=== PATIENT | female | born 1975 | race Two or more races ===

== ENCOUNTER 2024-06-19 13:35 | Outpatient (REF) | payer OTHER, SELFPAY ==
--- NOTE | ~2024-06-19 | XR_ITS ---
EXAMINATION: XR KNEE, RIGHT CLINICAL INFORMATION: M25.569 - Pain in unspecified knee COMPARISON: None available. TECHNIQUE: Two views of the right knee. FINDINGS: No fracture or joint effusion. Alignment is anatomic. Joint spaces are maintained. No abnormal soft tissue calcification. XR/XR knee RT 2V IMPRESSION: Normal right knee. Electronically signed by: Angela Conklin MD 07/28/2024 05:[address] [facility]
--- NOTE | ~2024-06-19 | XR_ITS ---
EXAMINATION: XR KNEE, LEFT CLINICAL INFORMATION: M25.569 - Pain in unspecified knee COMPARISON: None available. TECHNIQUE: Two views of the left knee. FINDINGS: No fracture or joint effusion. Alignment is anatomic. Joint spaces are maintained. No abnormal soft tissue calcification. XR/XR knee LT 2V IMPRESSION: Normal left knee. Electronically signed by: Angela Conklin MD 07/28/2024 05:13 PM EST
== END 2024-06-19 13:36 | disposition home or self-care (01) ==
LOC: HO.HMGCX 13:35
PROVIDERS: Visit Provider Registered Nurse
DX: M54.50 Low back pain, unspecified (principal); H92.03 Otalgia, bilateral; M79.672 Pain in left foot; M79.671 Pain in right foot; M25.562 Pain in left knee; M25.561 Pain in right knee; G89.29 Other chronic pain; S46.819A Strain of other muscles, fascia and tendons at shoulder and upper arm level, unspecified arm, initial encounter; X58.XXXA Exposure to other specified factors, initial encounter; Y93.9 Activity, unspecified; Y92.9 Unspecified place or not applicable; Y99.9 Unspecified external cause status
CPT/HCPCS: 73560; 99202

== ENCOUNTER 2024-06-19 13:35 | Outpatient (AMB) | payer OTHER, SELFPAY ==
--- NOTE | 2024-06-19 13:38 | AM.OFFWIN_ITS ---
Intake Vital Signs 06/19/24 13:42 Height 5 ft 2 in Weight 275 lb BMI 50.3 BP 120/76 Blood Pressure Location Rt brachial Position Sitting Pulse 80 Pulse Source Pulse Oximeter Pulse Oximetry (%) 98 Oxygen Delivery Method Room Air Intake Visit Reasons: low back pain, ears and feet also Intake Note: pt is here for low back pain, ear and feet pain, patient does not have a pcp and was advised to come here Patient Tobacco Use Status: Never used Tobacco Allergies No Known Allergies Allergy (Verified 06/19/24 13:38) Do you need a note to return to daycare/school/sports/work: No HPI low back pain, ears and feet also HPI Details This note is constructed using voice recognition software. While every effort has been made to ensure accuracy, message broker developer errors may have been included. The patient is a 49 year old female who presents to the clinic today with bilateral knee pain, bilateral shoulder pain, with radiation up towards the ears. Patient reports that she moved from [place] approximately 3 weeks ago due to inability to obtain health insurance. She notes that she had a surgery in her upper back in the cervical region, about 5 or 6 years ago, she has not been treating her pain since then other than the occasional Advil. She reports that she has obtained an appointment with a new primary care provider, however she was provided an appointment for June of 2025, and given that the pain has been more constant, she does not feel waiting an entire year to be evaluated as a good idea. She reports that she has chronic knee pain and has been told that she needed knee replacement bilaterally. She reports that this has been several years that she has been followed for that, and she has even had MRI in the past for it, however but given that she has moved up from [place], she would need to establish with a new orthopedist. She denies any new injury to the area, and that the pain is primarily with ambulation. It is the knee pain that primarily led her to stop working, which led us of insurance. She reports chronic low back pain, primarily left more than right, and denies numbness and tingling in the extremities. She also reports bilateral upper back pain, in the trapezius region when she points to it. She reports that the pain in the neck gets sharp in nature, and seems to radiate up towards her ears. She denies loss of control of bowel or bladder, new trauma, any surgeries other than what was listed above. [facility]LY [facility] Social History Patient Tobacco Use Status: Never used Tobacco Review of Systems Const All systems reviewed & are unremarkable except as noted in HPI and below Physical Exam Vital Signs: Last Vital Signs Pulse 80 06/19/24 13:42 BP 120/76 06/19/24 13:42 Pulse Ox 98 06/19/24 13:42 Oxygen Delivery Method Room Air 06/19/24 13:42 BMI result Body Mass Index 50.3 Const General: cooperative, healthy appearing, comfortable, no acute distress and well developed Orientation/consciousness: patient oriented x3 Limitations: no limitations HEENT Head: Yes normal to inspection Ears: hearing grossly normal bilaterally Eyes General: appearance normal, both eyes and all related structures Neck Neck: Yes normal visual inspection and Yes full ROM Resp Effort & Inspection: normal respiratory effort and able to speak in complete sentences Auscultation: clear to auscultation bilaterally Cardio Rate: regular rate Rhythm: regular rhythm Heart sounds: normal S1 and S2 Skin General skin exam: no rashes or lesions noted Neuro General: patient oriented x3 Extrem Other: Full range of motion, positive crack but as bilateral knees, no edema, erythema, warmth. Full range of motion cervical region, with normal lateral rotation. Increased muscle bulging and tender to palpation bilateral trapezius. Shoulders full range of motion. Bilateral lumbar tenderness to palpation with increased muscle bulging. Negative SLR, negative well SLR. Distal neurovascular exam intact. General: Yes normal to inspection Assessment & Plan Assessment & Plan (1) Chronic knee pain: Code(s): M25.569 - Pain in unspecified knee; G89.29 - Other chronic pain Qualifiers: Laterality: bilateral Qualified Code(s): M25.561 - Pain in right knee; M25.562 - Pain in left knee; G89.29 - Other chronic pain Plan: Patient previously with workup to work towards surgical replacement, however has moved out of state to [place]. She reports that she has not had any imaging in several years, and would be interested in receiving imaging and referral to ortho if appropriate. X-ray ordered of each knee to facilitate future referral if appropriate. (2) Trapezius strain: Code(s): S46.819A - Strain of other muscles, fascia and tendons at shoulder and upper arm level, unspecified arm, initial encounter Qualifiers: Encounter type: initial encounter Laterality: unspecified laterality Qualified Code(s): S46.819A - Strain of other muscles, fascia and tendons at shoulder and upper arm level, unspecified arm, initial encounter Plan: Advised NSAIDs, muscle relaxers for symptomatic management in addition to heat/ice. Consider physical therapy referral if appropriate, advised follow up as needed with worsening or failure to resolve. (3) Lumbar pain: Code(s): M54.50 - Low back pain, unspecified Plan: No red flag symptoms warranting imaging at this time. Advised NSAIDs, muscle relaxers for symptomatic management in addition to heat/ice. Consider physical therapy referral if appropriate, advised follow up as needed with worsening or failure to resolve. Plan See above for full details and plan. Orders: Orders XR knee LT 2V Today G89.29 - Other chronic pain, M25.569 - Pain in unspecified knee XR knee RT 2V Today G89.29 - Other chronic pain, M25.569 - Pain in unspecified knee Medications: New cyclobenzaprine 5 mg PO Q8H PRN 10 tabs 0RF Muscle Spasm ibuprofen 600 mg PO Q8H PRN 20 tabs 0RF pain Coding Level of Care Code New Pt Level 4 (07010) Diagnoses Chronic pain of both knees M25.561; M25.562; G89.29 Laterality: bilateral Strain of trapezius muscle, unspecified laterality, initial encounter S46.819A Encounter type: initial encounter Laterality: unspecified laterality Lumbar pain M54.50
[2024-06-19 13:42] VITALS: BP 120/76; PULSE 80; O2SAT 98; BMI 50.3
== END 2024-06-19 14:38 | disposition home or self-care (01) ==
PROVIDERS: Visit Provider Registered Nurse
DX: M25.561 Pain in right knee (principal); M25.562 Pain in left knee; G89.29 Other chronic pain; S46.819A Strain of other muscles, fascia and tendons at shoulder and upper arm level, unspecified arm, initial encounter; M54.50 Low back pain, unspecified

== ENCOUNTER 2024-08-18 11:52 | Emergency (ER) | payer OTHER, SELFPAY ==
[2024-08-18 12:04] VITALS: BP 151/78; PULSE 101; RESP 20; TEMP 36; O2SAT 97; BMI 52.9
--- NOTE | 2024-08-18 12:05 | ED.GENADULT ---
HPI - General Adult General Chief complaint: Abdominal Pain Stated complaint: Low abd pain Time Seen by Provider: 08/18/24 21:19 Source: patient Mode of arrival: ambulatory Limitations: no limitations History of Present Illness ED Provider: Dr. Sola Ram HPI narrative: Patient comes to the emergency room complaining of 2-3 days of diarrhea and suprapubic pain. Patient complaining of mild discomfort with urination and mild bilateral back pain. Patient denies nausea vomiting or diarrhea, denies any fever or chills. Patient states that she did not take any medication prior to arrival. Patient states that she has chronic bilateral back pain and has had surgery for it. However, she states that she has a different kind of discomfort in her back. Related Data Previous Rx's ?Medication ?Instructions ?Recorded cyclobenzaprine 5 mg tablet 5 mg PO Q8H PRN Muscle Spasm #10 06/19/24 tabs ibuprofen 600 mg tablet 600 mg PO Q8H PRN pain #20 tabs 06/19/24 levofloxacin 500 mg tablet 500 mg PO DAILY #9 tabs 08/18/24 loperamide 2 mg tablet 2 mg PO Q4H PRN loose stool #10 08/18/24 tabs Allergies Allergy/AdvReac Type Severity Reaction Status Date / Time morphine [MORPHINE] AdvReac Severe DIZZINESS Verified 08/18/24 12:08 EVEN WHEN ADMIN OVER SEVERAL MINUTES Review of Systems Review of Systems: Constitutional : No Weight loss, No Fever, No Chills, No Night Sweats, No Fatigue, No Malaise ENT/Mouth : No Hearing loss, No Ear Pain, No Nasal Congestion, No Sinus Pain, No Hoarseness, No sore throat, No Rhinorrhea, No Swallowing Difficulty Eyes: No Eye Pain, No Swelling, No Redness, No Foreign Body, No Discharge, No Vision Changes Cardiovascular : No Chest Pain, No SOB, No Dyspnea on Exertion, No Orthopnea, No Edema, No Palpitations Respiratory : No Cough, No Sputum, No Wheezing, No Smoke Exposure, No Dyspnea Gastrointestinal : No Nausea, No Vomiting, No Diarrhea, No Constipation, No abdominal Pain, No Hematochezia, No Melena Genitourinary : Complaining of mild Dysuria, No Urinary Frequency, No Hematuria, No Urinary Incontinence, No Urgency, complaining of mild bilateral Flank Pain, No Urinary Flow Changes, No Hesitancy Musculoskeletal : No joint pain, No Myalgias, No Joint Swelling Skin : No Skin Lesions, No rash Neuro : No Weakness, No Numbness, No Paresthesias, No Loss of Consciousness, No Dizziness, No Headache Psych : No Anxiety/Panic, No Depression, No SI/HI/AH/VH, No Social Issues, Heme/Lymph: No Bruising, No Bleeding,No Lymphadenopathy Endocrine : No Polyuria, No Polydipsia, No Temperature Intolerance [facility] Social History Social History (System 06/19/24 @ 15:10 by Bianca Martell) Patient Tobacco Use Status: Never used Tobacco Advance Directives: No Advance Directives Information Provided: No Do you have a plan to hurt others: No Plan Physical Exam ED Vital Signs: Vital Signs - 24 hr 08/18/24 12:04 08/18/24 20:32 Temperature 96.8 F 98.1 F Pulse Rate 101 H 73 Respiratory Rate 20 16 Blood Pressure 151/78 H 132/68 Pulse Oximetry 97 97 Oxygen Delivery Method Room Air Room Air BMI result Body Mass Index 52.9 Const Other: Appearance: Alert. Oriented X3. No acute distress. Well-appearing Eyes: Pupils equal, round and reactive to light. ENT: Pharynx normal. Neck: Normal inspection. Neck supple. No lymph nodes noted. No crepitus CVS: Normal heart rate and rhythm. Pulses normal. Normal S1 and S2 Respiratory: No respiratory distress. Breath sounds normal. No Wheezing. No rales Abdomen: Soft , discomfort to palpation in the suprapubic area, no significant CVA tenderness Skin: Skin warm and dry. Normal skin color. Normal skin turgor. Extremities: No lower extremity edema. No Lacerations. No Rash Neuro: Oriented X 3. No motor deficit. No sensory deficit. Moving all extremities. No slurred speech. CN 2 through 12 grossly intact Psych: calm, cooperative, normal affect Course Course Course Narrative: This is a rapid medical exam performed by Yoly Galloway NP: Additional HPI, ROS, PE not included below will be deferred to primary provider. Patient is a 49-year-old female presenting with complaint of lower abdominal pain since yesterday, diarrhea with any PO intake. Denies recent abx use. Plan: labs, viral serology Medical Decision Making Medical Decision Making MDM Narrative: My interpretation of labs: No significant abnormality in patient's hematology and chemistry. UTI positive. Serology negative for influenza and COVID. I discussed with the patient that the source her suprapubic discomfort is likely a urinary tract infection. Given that the patient is stating that she has acute on chronic back pain/flank pain, we will treat as pyelonephritis. Patient is not septic. No episodes of hypotension, no fever chills, no tachycardic. Patient was given the 1st dose of levofloxacin in the emergency room. For diarrhea, it may be a viral syndrome, patient was giving loperamide p.o.. In the emergency room, patient has not had any episodes of diarrhea. Differential Diagnosis Differential Diagnoses: The differential diagnosis associated with the presentation includes (As above) Lab Data MDM Lab Attestation statement: I reviewed the patient's lab results. 08/18/24 14:19 08/18/24 14:19 Labs: Lab Results 08/18/24 08/18/24 Range/Units 14:18 14:19 WBC 10.9 H (4.8-10.8) X10*3/uL RBC 4.44 (4.20-5.50) X10*6/uL Hgb 12.9 (12.0-16.0) g/dl Hct 39.5 (37.0-47.0) % MCV 89.0 (80.0-98.0) fL MCH 29.1 (27.0-33.0) pg MCHC 32.7 (31.0-35.0) g/dl RDW 12.6 (11.0-16.0) % Plt Count 304 (160-400) X10*3/uL MPV 9.4 (9.4-12.3) fL Immature Gran % (Auto) 0.5 H (0.0-0.4) % Neut % (Auto) 62.4 (45-73) % Lymph % (Auto) 30.0 (20-40) % [place] % (Auto) 5.3 (2-11) % Eos % (Auto) 1.3 (0-4) % Baso % (Auto) 0.5 (0-2) % Lymph # (Auto) 3.3 (1.2-4.9) X10*3/uL [place] # (Auto) 0.6 (0.1-1.2) X10*3/uL Eos # (Auto) 0.1 (0.0-0.4) X10*3/uL Baso # (Auto) 0.1 (0.0-0.2) X10*3/uL Abs Immat Gran (auto) 0.05 H (0.00-0.03) X10*3/uL Absolute Neuts (auto) 6.8 (2.0-8.3) x10*3/uL Absolute Nucleated RBC 0.000 (0.0-0.012) X10*3/uL Nucleated RBC % (auto) 0.0 (0.0-0.2) /100WBC Sodium 138 (135-145) mmol/L Potassium 4.3 (3.3-5.1) mmol/L Chloride 106 (96-108) mmol/L Carbon Dioxide 27 (22-29) mmol/L Anion Gap 9 L (12-20) BUN 13 (9-16) mg/dL Creatinine 0.75 (0.5-1.4) mg/dL Estim Creat Clear Calc 118.2 Estimated GFR > 60 Random Glucose 101 (60-115) mg/dL Calcium 9.4 (8.4-10.2) mg/dL Magnesium 2.1 (1.6-2.6) mg/dL Total Bilirubin 0.3 (0.0-1.0) mg/dL AST 21 (5-31) U/L ALT 21 (0-31) U/L Alkaline Phosphatase 72 (39-117) U/L Total Protein 7.7 (6.5-8.0) g/dL Albumin 3.9 (3.5-5.0) g/dL Urine Color Dark Yellow Urine Appearance Clear Urine pH 5.5 (5.0-9.0) Ur Specific [place] 1.020 (1.005-1.025) Urine Protein Negative (Neg-Trace) mg/dL Urine Glucose (UA) Negative (Negative) mg/dL Urine Ketones Negative (Negative) mg/dL Urine Blood Trace H (Negative) Urine Nitrite Positive H (Negative) Ur Leukocyte Esterase Negative (Negative) Urine RBC 0-2 (0-2) /HPF Urine WBC 0-5 (0-5) /HPF Ur Squamous Epith Cells 3-5 (0-2) /HPF Urine Bacteria None Seen (None Seen) Hyaline Casts 0-2 (0-2) /LPF Granular Casts Present Influenza Type A (PCR) NEGATIVE (Negative) Influenza Type B (PCR) NEGATIVE (Negative) RSV RNA Qual (PCR) NEGATIVE (Negative) SARS-CoV-2 RNA (RT-PCR) NEGATIVE (Negative) Discharge Plan Discharge Clinical Impression: Pyelonephritis, Diarrhea Patient Disposition: Home, Self-Care Instructions: Kidney Infection (ED), Acute Diarrhea (ED) Additional Instructions: Please follow-up with your primary care physician tomorrow. If you have any worsening or new symptoms, please return to the emergency room or call 911 Prescriptions: New levofloxacin 500 mg tablet 500 mg PO DAILY Qty: 9 0RF loperamide 2 mg tablet 2 mg PO Q4H PRN (Reason: loose stool) Qty: 10 0RF Rx Instructions: administer after each loose stool until symptoms controlled; do not exceed 8 mg per 24 hrs No Action cyclobenzaprine 5 mg tablet 5 mg PO Q8H PRN (Reason: Muscle Spasm) Qty: 10 0RF ibuprofen 600 mg tablet 600 mg PO Q8H PRN (Reason: pain) Qty: 20 0RF Print Language: [place]
[2024-08-18 14:27] LABS: Basophils Absolute Auto 0.1 X10*3/uL (0.0-0.2); Basophils Percent Auto 0.5 % (0-2); Eosinophils Absolute Auto 0.1 X10*3/uL (0.0-0.4); Eosinophils Percent Auto 1.3 % (0-4); Hematocrit 39.5 % (37.0-47.0); Hemoglobin 12.9 g/dl (12.0-16.0); Imm Gran Abs Auto 0.05 X10*3/uL (0.00-0.03); Imm Gran Pct Auto 0.5 % (0.0-0.4); Lymphocytes Absolute Auto 3.3 X10*3/uL (1.2-4.9); MANUAL DIFF FLAG NO; Mean Corpuscular HGB Conc 32.7 g/dl (31.0-35.0); Mean Corpuscular Hemoglobin 29.1 pg (27.0-33.0); Mean Platelet Volume 9.4 fL (9.4-12.3); Monocytes Absolute Auto 0.6 X10*3/uL (0.1-1.2); Monocytes Percent Auto 5.3 % (2-11); Neutrophils Absolute Auto 6.8 x10*3/uL (2.0-8.3); Neutrophils Percent Auto 62.4 % (45-73); Platelet Count 304 X10*3/uL (160-400); Red Blood Count 4.44 X10*6/uL (4.20-5.50); Red Cell Distribution Width 12.6 % (11.0-16.0); White Blood Count 10.9 X10*3/uL (4.8-10.8)
[2024-08-18 14:31] LABS: Appearance Urine Clear; Color Urine Dark Yellow; Glucose Urine UA Negative (Negative); Leukocyte Esterase Urine Negative (Negative); Nitrite Urine Positive (Negative); PH 5.5 (5.0-9.0); UMIC TRIGGER UACC YES; Urine Blood Trace (Negative); Urine Ketones Negative (Negative); Urine Protein Negative (Neg-Trace)
[2024-08-18 14:39] LABS: Bacteria Urine None Seen (None Seen); Granular Casts Urine Present; Hyaline Casts Urine 0-2 /LPF (0-2); RBC Urine 0-2 /HPF (0-2); UACC Culture Trigger YES; WBC Urine 0-5 /HPF (0-5)
[2024-08-18 14:45] LABS: Alanine Aminotransferase 21 U/L (0-31); Albumin Level 3.9 g/dL (3.5-5.0); Anion Gap 9 (12-20); Aspartate Amino Transferase 21 U/L (5-31); Bilirubin Total 0.3 mg/dL (0.0-1.0); Blood Urea Nitrogen 13 mg/dL (9-16); Calcium 9.4 mg/dL (8.4-10.2); Carbon Dioxide 27 mmol/L (22-29); Chloride 106 mmol/L (96-108); Creatinine Clr Calc Pharmacy 118.2; Estimated Glomerular Filt Rate > 60; Glucose Random 101 mg/dL (60-115); Magnesium 2.1 mg/dL (1.6-2.6); Potassium 4.3 mmol/L (3.3-5.1); Sodium 138 mmol/L (135-145); Total Protein 7.7 g/dL (6.5-8.0)
[2024-08-18 15:06] LABS: Influenza A PCR NEGATIVE (Negative); Influenza B PCR NEGATIVE (Negative); Resp Syncy Virus RNA Qual PCR NEGATIVE (Negative); SARS COV2 PCR INHOUSE NEGATIVE (Negative)
[2024-08-18 15:17] LABS: Alkaline Phosphatase 72 U/L (39-117)
[2024-08-18 20:32] VITALS: BP 132/68; PULSE 73; RESP 16; TEMP 36.7; O2SAT 97
--- NOTE | 2024-08-18 21:38 | PC.NURSE ---
pt from wr to ed8H ambulatory with steady gait. approx 2030 pt denied any complaints, resting comfortably, on phone, speaking full clear sentences. vitals as documented. awaiting to be seen by ed provider. approx 0 pt reports wanting to leave as i am hungry and i've been here for 10 hours. verbal reassurance to pt and educated to remain NPO until cleared by MD rangel of further tests. pt verbalizes agreement. currently resting comfortably in stretcher, nad.
[2024-08-18 22:10] VITALS: BP 132/68; PULSE 73; RESP 16; TEMP 36.7; O2SAT 97
[2024-08-18] MEDS: levoFLOXacin 500 MG TABLET PO (22:10)
--- NOTE | 2024-08-18 22:10 | PC.NURSE ---
held immodium as pt denies diarrhea >12 hrs, in agreement, educated med was sent to the pharmacy and pt can take if diarrhea sx return.
== END 2024-08-18 22:11 | disposition home or self-care (01) ==
PROVIDERS: Registered Nurse Emergency; Emergency Provider Emergency Medicine
DX: N12 Tubulo-interstitial nephritis, not specified as acute or chronic (principal); R19.7 Diarrhea, unspecified; R10.30 Lower abdominal pain, unspecified; Z03.818 Encounter for observation for suspected exposure to other biological agents ruled out; I10 Essential (primary) hypertension; E78.5 Hyperlipidemia, unspecified
CPT/HCPCS: 0241U; 80053; 81001; 83735; 85025; 87086; 99283

== ENCOUNTER 2024-08-23 10:39 | Outpatient (AMB) | payer OTHER, SELFPAY ==
--- NOTE | 2024-08-23 10:53 | MHC.PC.OV ---
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 Runner Worker Required: No Allergies lisinopril Allergy (Mild, Verified 08/23/24 11:47) gi upset' Medication List - Last Reconciled 08/23/24 by Jaymie Quinones, [facility]- levofloxacin 500 mg PO DAILY Tobacco use date assessed: 08/23/24 Dental Screening Dental Screen Date: 08/23/24 Did you have a dental visit in the last 12 months?: Yes Did you have a dental problem in the last 6 months where you did not have access to dental care?: No Was dental information given to patient?: Patient has dentist HPI HPI Comments History of Present Illness Details 49 y/o F with chronic back pain, macular hemorrhage, HTN retinopathy , BLANCA, hepatomegaly , thryoid nodules, HLD s/p c4-c5, c5-c6 discectomy , R CTS 2019, thyroid Bx, s/p OREN Health Maintenance Flu declined Tdap declined Mammo ordered today DEXA ordered today Colon reports done 1996, normal. Repeat 2026 Specialists [facility] 06/2024 macular hemorrhage, HTN retinopathy RTO 6 mo Retinal specialists [facility] Here today as a new patient to establish care; for a complete physical exam and for hospital discharge follow up. Very limited medical records available to me for the visit today [facility] ED visit 08/18/24 Pyelo/diarrhea. Given levaquin 500 x 9 days and prn loperamide Noted to have elevated glucose A1c done today 5.4% Taking Ab as directed. sx are resolved. Repeat UA improved today. Endo: thyroid nodule, reports bx done and needed to be ff'd. Unsure of details. Plan refer to [facility] endo GI: hepatomegaly US 09/2022 enlarged 20 cm, diffuse increased echogenciity impression hepatomegaly with mild steatosis. Was enrolled in the bariatric program however did not go through with the surgery as she was able to lose 60 lb on her own. She wishes to continue her lifestyle modifications with a goal of decreasing her weight. MSK: chronic back pain and leg pain; present for years. Plan refer to [facility] Pain Mgmt Disability: referred - see info below Psych: MDD and GERD. Has never been on any medications. Would like a referral for counseling. Results Labs from today show normal electrolytes, normal renal function, total cholesterol 270, triglycerides 274, LDL 176, HDL 40, normal B12 and vitamin-D, normal TSH and folate, normal urine microalbumin creatinine ratio Plan Start atorvastatin 40 mg p.o. daily reports that she was on this previously and tolerated it She was previously prescribed lisinopril and she reports that she had on tolerable GI upset. She reports then she was prescribed metoprolol and tolerated that fine for her blood pressure control. I would like to try an Arb to see this controls her blood pressure without any side effects rather than go straight to a beta-elba. I have sent in a prescription for losartan. Her bone density and mammogram have been ordered. I did place a referral to pain management for her chronic pain. I have placed a referral to endocrinology to evaluate her abnormal thyroid nodules. I have also placed a referral to our nurse navigator to help her establish care with a counselor. The repeat urinalysis done in the office today shows improvement. She should continue her Levaquin until it is completed. A1c performed in the office today to rule out diabetes given the elevated glucose in the emergency room. This was within normal limits. Return to office in 6 months for routine follow up of hyperlipidemia and hypertension. Sooner as needed. An additional 30 minutes was spent addressing the problem(s) noted at todays visit. This includes time spent before the visit reviewing the chart, time spent during the visit, and time spent after the visit on documentation [facility] History (Updated 08/23/24 @ 15:56 by Jaymie Quinones [facility]) High cholesterol Hypertension Surgical History H/O: hysterectomy H/O hand surgery H/O neck surgery Previous back surgery Family History (Updated 08/23/24 @ 11:02 by Sameer Lancaster MA) Mother Hypertension Diabetes High cholesterol Social History (Updated 08/23/24 @ 11:01 by Sameer Lancaster MA) Household Members: Family Housing: Apartment Are you a primary career services coordinator to a significant other at home: No Do you presently have visiting nurse or other home services: No Alcohol intake: never Patient Tobacco Use Status: Never used Tobacco e-Cigarette/Vaping Use: Never Used Second Hand Smoke Exposure: No Current occupational status: disabled Cognitive needs: No Hearing needs: No Vision needs: Yes (wear glasses) Questionnaire PHQ-9 Over the last 2 weeks, how often have you been bothered by any of the following problems? 1. Little interest or pleasure in doing things: several days 2. Feeling down, depressed, or hopeless: not at all 3. Trouble falling or staying asleep, or sleeping too much: several days 4. Feeling tired or having little energy: several days 5. Poor appetite or overeating: several days 6. Feeling bad about yourself - or that you are a failure or have let yourself or your family down: not at all 7. Trouble concentrating on things, such as reading the newspaper or watching television: not at all 8. Moving or speaking so slowly that other people could have noticed. Or the opposite - being so fidgety or restless that you have been moving around a lot more than usual: not at all 9. Thoughts that you would be better off or of hurting yourself in some way: not at all Total score: 4 95454 - PHQ-9 Billing: Yes Source: Developed by Drs. Sharad Pineda, Jaki Davis, Gerson Thao and colleagues, with an educational louann from [employer]. Thrive Questionnaire Date Thrive assessed: 08/23/24 I am a: Patient What is your living situation today?: I have a steady place to live Within the past 12 months, did the food you bought not last and you didn't have the money to get more?: I choose not to answer this question Within the past 12 months, did you worry whether your food would run out before you got money to buy more?: I choose not to answer this question Do you have trouble paying for medicines?: I choose not to answer this question Do you have trouble getting transportation to medical appointments?: I choose not to answer this question Do you have trouble paying your heating and electricity bill?: I choose not to answer this question Do you have trouble taking care of your child, family member or friend?: I choose not to answer this question Do you have trouble with day-to-day activities such as bathing, preparing meals, shopping, managing finances, etc.?: I choose not to answer this question Are you currently unemployed and looking for a job?: No Are you interested in more education?: No Please select the resources that you would like help with: None Currently or been in a relationship where the following occur: No concerns reported THRIVE Score: 0 AUDIT C Alcohol Use Questionnaire (AUDIT-C) 1. How often do you have a drink containing alcohol?: Never 3. How often do you have six or more drinks on one occasion?: Never Total Score: 0 Score Reviewed/Action Taken: Yes BLANCA-7 AMB Questionnaire BLANCA-7 Date BLANCA - 7 assessed: 08/23/24 Feeling nervous, anxious, or on edge: 1 = Several days Not being able to stop or control worryin = Several days Worrying too much about different things: 1 = Several days Trouble relaxin = Several days Being so restless that it is hard to sit still: 1 = Several days Becoming easily annoyed or irritable: 0 = Not at all Feeling afraid as if something awful might happen: 0 = Not at all Total BLANCA-7 score (0-4 normal; 5-9 mild; 10-14 moderate; 15-21 severe): 5 Source: Developed by Drs. Sharad Pineda, Jaki Davis, Gerson Thao and colleagues, with an educational louann from [employer]. BLANCA-7 Assessment Billing BLANCA-7 Assessment Tool: BLANCA-7 Assessment 42623 Physical exam (Primary Care) Vital Signs: Last Vital Signs Pulse 85 08/23/24 11:04 Resp 14 08/23/24 11:04 BP 140/80 H 08/23/24 11:04 Pulse Ox 97 08/23/24 11:04 Oxygen Delivery Method Room Air 08/23/24 11:04 BMI result Body Mass Index 52.3 BMI Assessment/Plan discussion: High BMI High, discussed plan: lifestyle and dietary Tobacco/Smoking Status: Tobacco use Status Tobacco use date assessed 08/23/24 08/23/24 10:56 Patient Tobacco Use Status Never used Tobacco 08/23/24 11:01 e-Cigarette/Vaping Use Never Used 08/23/24 11:01 PHQ-9: PHQ-9 Score PHQ-9: Total score 4 08/23/24 11:35 Thrive Assessment: Date of Thrive Assessment Date Thrive assessed 08/23/24 08/23/24 10:56 Currently or been in a relationship where the following occur: No concerns reported Const Other: General: Well developed, well nourished, in no acute distress. Appears stated age. Head: Normocephalic, atraumatic. Eyes: Pupils are equal, round and reactive to light and accommodation. Conjunctivae are clear. Vision grossly normal. Ears: TMs clear AU, EACS WNL Nose: Patent, without discharge. Mouth: There are no ulcers or lesions noted. No inflammation, no post nasal drip, no plaques nor exudates. Neck: Supple, no adenopathy or thyromegaly. Lungs: Clear to auscultation bilaterally. No rales, rhonchi or wheeze noted. Good air flow in all montgmoery. Heart: Regular rate and rhythm. No murmurs, click, rubs or gallops are noted. Abdomen: Bowel sounds present in all quadrants. The abdomen is soft, nontender, with no masses or organomegaly noted. No hernias are noted. Musculoskeletal: Joints are nontender, without swelling, redness, or effusions. Range of motion is observed to be normal. Pulses: Peripheral pulses are equal and palpable bilaterally. Extremities: No clubbing, cyanosis nor edema is noted. Neurologic: Gait and station normal. Cranial Nerves 2-12 intact. Motor strength grossly symmetrical and intact. No sensory loss. Balance normal. Skin: No rashes, ulcers, or lesions noted. Turgor is good. Skin color is good. Hair and nails are without abnormalities. Psych: Normal eye contact, affect and mood appropriate, and normal interactions. Patient is alert and appropriate to context. Results AMB Hemoglobin A1c AMB Hemoglobin A1c 5.4 % Last Edit by Sameer Lancaster MA on 08/23/24 11:35 AMB Urinalysis, Automated UA Leukoctes 15 Gm/uL Last Edit by Sameer Lancaster MA on 08/23/24 11:36 UA Nitrite Negative Last Edit by Sameer Lancaster MA on 08/23/24 11:36 UA Urobilinogen 3.5 mg/dL Last Edit by Sameer Lancaster MA on 08/23/24 11:36 UA Protein mg/dL Last Edit by Sameer Lancaster MA on 08/23/24 11:36 0.15 Sameer Lancaster 08/23/24 11:36 UA pH 5.5 Last Edit by Sameer Lancaster MA on 08/23/24 11:36 UA Blood 10 Jose Daniel/uL Last Edit by Sameer Lancaster MA on 08/23/24 11:36 UA Specific Hunter 1.025 Last Edit by Sameer Lancaster MA on 08/23/24 11:36 UA Ketone Negative Last Edit by Sameer Lancaster MA on 08/23/24 11:36 UA Bilirubin 0 mg/dL Last Edit by Sameer Lancaster MA on 08/23/24 11:36 UA Glucose 0 mg/dL Last Edit by Sameer Lancaster MA on 08/23/24 11:36 Results Reviewed Results Reviewed: Laboratory Last Values Hgb A1c (Clinic) 5.4 % (4.0-6.0) 08/23/24 11:31 Urine pH (Auto) 5.5 08/23/24 11:31 Specific Hunter (Auto) 1.025 08/23/24 11:31 Urine Protein (Auto) mg/dL 08/23/24 11:31 Glucose (UA)(Auto) 0 mg/dL 08/23/24 11:31 Urine Ketones (Auto) Negative 08/23/24 11:31 Urine Blood (Auto) 10 Jose Daniel/uL 08/23/24 11:31 Urine Nitrite (Auto) Negative 08/23/24 11:31 Urine Bilirubin (Auto) 0 mg/dL 08/23/24 11:31 Urine Urobilinogen (Auto) 3.5 mg/dL 08/23/24 11:31 Leukocyte Esterase (Auto) 15 Gm/uL 08/23/24 11:31 Coding Level of Care Code New Pt Level 3 (17347) New Pt Prev Care 40-64y(40075) Diagnoses Chronic midline low back pain without sciatica M54.50; G89.29 Back pain location: low back pain Back pain laterality: midline Sciatica presence: without sciatica S/P spinal surgery Z98.890 Thyroid nodule E04.1 Mixed hyperlipidemia E78.2 Hyperlipidemia type: mixed hyperlipidemia Mild episode of recurrent major depressive disorder F33.0 Major depression episode severity: mild BLANCA (generalized anxiety disorder) F41.1 Morbid obesity with BMI of 50.0-59.9, adult E66.01; Z68.43 Influenza vaccination declined Z28.21 Tetanus, diphtheria, and acellular pertussis (Tdap) vaccination declined Z28.21 Hypertensive retinopathy of both eyes H35.033 Laterality: bilateral Macular hemorrhage of both eyes H35.63 Laterality: bilateral Hepatomegaly R16.0 Surgical menopause E89.40 Establishing care with new doctor, encounter for Z76.89 Additional Codes BLANCA-7 Assessment Billing - BLANCA-7 Assessment Tool: BLANCA-7 Assessment 30614 ([id number]) PHQ-9 - 95398 - PHQ-9 Billing: Yes ([id number]) Assessment & Plan Assessment & Plan (1) Chronic back pain: Code(s): M54.9 - Dorsalgia, unspecified; G89.29 - Other chronic pain Category: Medical Qualifiers: Back pain location: low back pain Back pain laterality: midline Sciatica presence: without sciatica Qualified Code(s): M54.50 - Low back pain, unspecified; G89.29 - Other chronic pain (2) S/P spinal surgery: Code(s): Z98.890 - Other specified postprocedural states Category: Medical (3) Thyroid nodule: Comment: us 10/06/22 recommends bx see scanned results Code(s): E04.1 - Nontoxic single thyroid nodule Category: Medical (4) Hyperlipidemia: Code(s): E78.5 - Hyperlipidemia, unspecified Category: Medical Qualifiers: Hyperlipidemia type: mixed hyperlipidemia Qualified Code(s): E78.2 - Mixed hyperlipidemia (5) MDD (major depressive disorder), recurrent episode: Code(s): F33.9 - Major depressive disorder, recurrent, unspecified Category: Medical Qualifiers: Major depression episode severity: mild Qualified Code(s): F33.0 - Major depressive disorder, recurrent, mild (6) BLANCA (generalized anxiety disorder): Code(s): F41.1 - Generalized anxiety disorder Category: Medical (7) Morbid obesity with BMI of 50.0-59.9, adult: Code(s): E66.01 - Morbid (severe) obesity due to excess calories; Z68.43 - Body mass index [BMI] 50.0-59.9, adult Category: Medical (8) Influenza vaccination declined: Code(s): Z28.21 - Immunization not carried out because of patient refusal Category: Medical (9) Tetanus, diphtheria, and acellular pertussis (Tdap) vaccination declined: Code(s): Z28.21 - Immunization not carried out because of patient refusal Category: Medical (10) Hypertensive retinopathy: Code(s): H35.039 - Hypertensive retinopathy, unspecified eye Category: Medical Qualifiers: Laterality: bilateral Qualified Code(s): H35.033 - Hypertensive retinopathy, bilateral (11) Macular hemorrhage: Code(s): H35.60 - Retinal hemorrhage, unspecified eye Category: Medical Qualifiers: Laterality: bilateral Qualified Code(s): H35.63 - Retinal hemorrhage, bilateral (12) Hepatomegaly: Code(s): R16.0 - Hepatomegaly, not elsewhere classified Category: Medical (13) Surgical menopause: Code(s): E89.40 - Asymptomatic postprocedural ovarian failure Category: Medical (14) Establishing care with new doctor, encounter for: Code(s): Z76.89 - Persons encountering health services in other specified circumstances Plan . Orders: Orders AMB Hemoglobin A1c Today Z13.9 - Encounter for screening, unspecified AMB Urinalysis Automated Today Z13.9 - Encounter for screening, unspecified XR DEXA axial skeleton Today Z13.820 - Encounter for screening for osteoporosis MM tomosynthesis screening BI Today Z12.31 - Encounter for screening mammogram for malignant neoplasm of breast Comprehensive Met. Panel Today E04.1 - Nontoxic single thyroid nodule, E78.5 - Hyperlipidemia, unspecified Vitamin B12 and Folate Today E04.1 - Nontoxic single thyroid nodule, E78.5 - Hyperlipidemia, unspecified Vitamin D 25-OH Total Today E04.1 - Nontoxic single thyroid nodule, E78.5 - Hyperlipidemia, unspecified Lipid Panel Today E04.1 - Nontoxic single thyroid nodule, E78.5 - Hyperlipidemia, unspecified Microalbumin, Random (w Creat) Today E04.1 - Nontoxic single thyroid nodule, E78.5 - Hyperlipidemia, unspecified TSH reflex Free T4 Today E04.1 - Nontoxic single thyroid nodule, E78.5 - Hyperlipidemia, unspecified Referrals Pain Management Referral G89.29 - Other chronic pain, M54.9 - Dorsalgia, unspecified, Z98.890 - Other specified postprocedural states Endocrinology Referral E04.1 - Nontoxic single thyroid nodule Nurse Navigator Referral F33.9 - Major depressive disorder, recurrent, unspecified, F41.1 - Generalized anxiety disorder Medications: New atorvastatin 40 mg PO BEDTIME 90 tabs 1RF losartan 25 mg PO DAILY 90 tabs 1RF Discontinued levofloxacin Discontinued Reason: Patient no longer taking 500 mg PO DAILY 9 tabs 0RF loperamide administer after each loose stool until symptoms controlled; do not exceed 8 mg per 24 hrs Discontinued Reason: Patient no longer taking 2 mg PO Q4H PRN 10 tabs 0RF loose stool cyclobenzaprine Discontinued Reason: Patient no longer taking 5 mg PO Q8H PRN 10 tabs 0RF Muscle Spasm ibuprofen Discontinued Reason: Patient no longer taking 600 mg PO Q8H PRN 20 tabs 0RF pain Patient Instructions: Disability Benefits The [facility] ([facility]) can help you understand how working may affect your benefits. Understanding your disability benefits can be complicated, but you can work and still receive benefits. The [facility] is part of the solution to this process and can help you reach your goal of financial independence. Your local Vocational Rehabilitation Office and [employer] is often the best place to get information. [facility] Disability Determination Services (DDS) is a division of the [place] [employer] Commission which is 100% funded by the Social Security Administration (SSA). [facility] Disability Examiners and medical consultants determine eligibility of [place] applicants for two disability programs: Social Security Disability Insurance (SSDI) - ages 18- 65 and Supplemental Security Income (SSI) - ages - 65. [facility] Disability Determination Services (DDS) is a division of the [place] [employer] ([facility]), which is 100% funded by the Social Security Administration (SSA). Who we are and what we do [facility] disability examiners and medical consultants determine eligibility of [place] applicants for 2 disability programs: Social Security Disability Insurance (SSDI), ages 18 - 65 Supplemental Security Income (SSI), ages - 65 If you think you may be eligible for payments, call to file a claim or contact your local Social Security Office . You must contact the Social Security Administration to apply for benefits. If you are looking for an online application for either SSDI or SSI visit ssa.gov. For an update on case status call the Vocational Director Business (VDE) as identified in your introductory claimant letter. Looking for an overview of annual benefits for their case [email or web address] or The claims processed by the [facility] include: Initial applications Reconsideration applications ? First appeal of a denied initial application Continuing Disability Reviews ? Periodic reviews to determine if you should continue receiving benefits Disability Hearings ? [id number]-df-dwlq informal hearing as a part of the appeal of a Continuing Disability Review cessation determination Special outreach efforts are made to homeless shelters and individuals diagnosed with HIV The [facility] has offices in [place] and [place]. Consultants at [facility] We employ more than 70 medical and psychological consultants in-house and more than 300 medical and psychological consultants throughout the [facility] to assist us in determining claimants' eligibility for disability benefits under Social Security. How to Contact [facility] Online File a claim on-line [email or web address] Phone: [place] Call [facility] , [place] [phone] Call [facility] [phone] [facility] free [place] Call [facility] , [place] [phone] Call [facility] [phone] [place] toll free Call [facility] [phone] To file an initial claim with SSA TTY Call [facility] , [facility] [phone] To file an initial claim with [facility] Fax [place] or [phone] [place] Address [id number] [place] [address], [address], [place] [address] Walk-In Care (Urgent Care): We Make it Easy Walk-in for urgent medical issues such as: ? Seasonal Allergies ? Insect Bites ? Cough ? Diarrhea ? Acute Asthma Attacks ? Back, Knee or Joint Pain ? Ear Infection ? Fever without a Rash ? Headaches ? Nausea ? [place], Rash or Skin Irritation ? Sore Throat ? Sports Physicals ? Vomiting Most insurances are accepted. Patients do not need to be part of the [facility] to seek care at the walk-in clinic. Locations [address] [facility] , [place] [address] ? [phone] [facility] Walk-In Care in [place] provides services to ages 18 and over. Open Wednesday-Wednesday: 8 a.m. to 5 p.m. and Wednesday: 9 a.m. to 3 p.m.* *Hours may vary due to staffing availability. To confirm Walk-In Care hours in [place], please call [phone]. [address] [place] [address] ? [phone] [facility] Walk-In Care in [place] provides services to ages 12 and over. Open Wednesday-Wednesday: 8 a.m. to 5 p.m. Hours may vary due to staffing availability. To confirm Walk-In Care hours in [place], please call [phone]. LABORATORY SERVICES: [facility] Lab ? Primary Location [address] [place] [address] Wednesday through Wednesday 6:00 AM ? 5:00 PM Wednesday 7:00 AM ? 11:00 AM* [phone] The [facility] Lab is centrally located near the front entrance of the [facility] for easy outpatient access. Convenient parking is provided for outpatients. *Hours may vary due to staffing availability. To confirm Laboratory hours for any location, please call [phone]. Offsite Location For your convenience, we offer offsite laboratory draw stations at the following locations: [address] [place] [address] ? [address], [address] Wednesday through Wednesday 7:30 AM ? 1:00 PM* [phone] *Hours may vary due to staffing availability. To confirm Laboratory hours for any location, please call [phone]. [place] ? [address] Wednesday through Wednesday 6:00 AM ? 3:30 PM* Wednesday 6:30 AM ? 3 PM* [phone] *Hours may vary due to staffing availability. To confirm Laboratory hours for any location, please call [phone] [place] [address] Wednesday through Wednesday 7:30 AM ? 4:00 PM* [phone] *Hours may vary due to staffing availability. To confirm Laboratory hours for any location, please call [phone] [place] [address] Wednesday through 9:00 AM ? 4:00 PM* *Hours may vary due to staffing availability. To confirm Laboratory hours for any location, please call [phone]. Appointments are not necessary. Walk-ins are welcome. Like all the departments throughout the [facility], our Lab undergoes frequent reviews to ensure the quality and accuracy of test results, and our staff takes special pride in its status as a nationally accredited facility. Patient Portal: ONE PATIENT. ONE RECORD. BETTER CARE. [facility] has a fully integrated, cutting-edge mobile electronic health information system that has revolutionized the way we care for our patients and manage our organization. This system improves communication and coordination enabling us to provide safe, higher-quality care, and an overall positive experience for staff and patients. Our first priority, as always, is to deliver the highest quality care possible. The system is running in the background supporting that priority. This portal is for all [facility] and [facility] services and practices. If you are experiencing any technical difficulties with enrolling or logging into the Patient Portal please complete the [facility] Patient Portal Technical Support Form. [facility] now offers a new secure on-line interactive tool for patients to review their health information ? ?Patient Portal. This interactive web portal will enable patients and their families to take an active role in their care by providing easy, secure access to their health information via the internet. The Patient Portal provides patients with instant access to their health information, including laboratory results, medications, allergies, demographic information, visit history, and more. In addition to managing their own care, parents and health care proxies with authorized consent will appreciate the ability to access the records of those individuals for whom they provide care. Please note: if you wish to gain access (Proxy) to another patient?s portal, you will be required to come to the Medical Records Department in person at [facility]. Both the patient giving proxy access and the proxy will need to provide photo identification and complete the appropriate authorization. The Patient Portal also allows track their appointments online. The [facility] Patient Portal also saves patients time by allowing them to submit updates to their demographic and contact information prior to their visits. Portal email notifications will also alert patients to any new activity on their portal, such as test results and new appointments. In order to initially enroll in the [facility] Patient Portal, you will need to enter some required information including the following: your [facility] Medical Record number your personal home email address name date of Please note: In order to enroll in the [facility] Patient Portal, we need to have your email address on file in your electronic medical record. ?The email address needs to be specific for one person (yourself) in order for your Portal enrollment to be successful. ?You can update your email address in person with our Registration staff when you are registering for a hospital visit. ?Otherwise, you will need to come to the Health Information Management (Medical Records) Department at [facility]. ?We are open from Wednesday ? Wednesday from 7:30 a.m. ? 4:30 p.m. ?You will be required to present a photo id. Once you have successfully enrolled in the Patient Portal, you will receive a one-time user id and password for the Portal, sent to your email address. ?This will allow you to log into the Patient Portal within 99 hrs and reset your own logon id and password, and define personal security questions. ?Once your permanent login and password have been set, you can log into the [facility] Patient Portal at any time via the blue button above or from the Portal Logon button on any page of the [facility] website. [facility] and [facility] encourage all of our patients to enroll in Patient Portal as it presents a valuable opportunity for patients and their families to actively participate in their care and stay healthy Welcome to [facility]. ?We look forward to working with you. Health screenings for women You should visit your health care provider from time to time, even if you are healthy. The purpose of these visits is to: Screen for medical issues Assess your risk for future medical problems Encourage a healthy lifestyle Update vaccinations and other preventive care services Help you get to know your provider in case of an illness Information Even if you feel fine, you should still see your provider for regular checkups. These visits can help you avoid problems in the future. For example, the only way to find out if you have high blood pressure is to have it checked regularly. High blood sugar and high cholesterol levels also may not have any symptoms in the early stages. A simple blood test can check for these conditions. There are specific times when you should see your provider or receive specific health screenings. The [place] Preventive Services Task Force publishes a list of recommended screenings. Below are screening guidelines for women ages 18 to 39. BLOOD PRESSURE SCREENING Your blood pressure should be checked at least once every 3 to 5 years if: Your blood pressure is in the normal range (top number less than 120 mm Hg and bottom number less than 80 mm Hg) You don't have risk factors for high blood pressure Ask your provider if you need your blood pressure checked more often if: The top number is 120 to 129 mm Hg or the bottom number is 70 to 79 mm Hg You have diabetes, heart disease, kidney problems, are overweight, or have certain other health conditions You have a first-degree relative with high blood pressure You are Black You had high blood pressure during a If the top number is 130 mm Hg or greater or the bottom number is 80 mm Hg or greater, this is considered stage 1 hypertension. Schedule an appointment with your provider to learn how you can reduce your blood pressure. Watch for blood pressure screenings in your area. Ask your provider if you can stop in to have your blood pressure checked. BREAST CANCER SCREENING Experts do not agree about the benefits of breast self-exams in finding breast cancer or saving lives. Talk to your provider about what is best for you. A screening mammogram is not recommended for most women under age 40. Your provider may discuss and recommend mammograms, MRI scans, or ultrasounds if you have an increased risk for breast cancer, such as: A mother or sister who had breast cancer at a young age (most often starting screening earlier than the age the close relative was diagnosed) You carry a high-risk genetic marker CERVICAL CANCER SCREENING Cervical cancer screening should start at age 21 years unless your provider advises otherwise. After the first test: Women ages 21 through 29 should have a Pap test every 3 years. Exoprts do not agree on whether HPV testing is recommended for this age group. Women ages 30 through 65 should be screened with either a Pap test every 3 years or the HPV test every 5 years or both tests every 5 years (called cotesting ). Women who have been treated for precancer (cervical dysplasia) should continue to have Pap tests for 20 years after treatment or until age 65, whichever is longer. If you have had your uterus and cervix removed (total hysterectomy), and you have not been diagnosed with cervical cancer or precancer (high grade cervical neoplasia), you do not need cervical cancer screening. CHOLESTEROL SCREENING Cholesterol screening should begin at: Age 45 for women with no known risk factors for coronary heart disease Age 20 for women with known risk factors for coronary heart disease Repeat cholesterol screening should take place: Every 5 years for women with normal cholesterol levels More often if changes occur in lifestyle (including weight gain and diet) More often if you have diabetes, heart disease, kidney problems, or certain other conditions DIABETES SCREENING You should be screened for diabetes starting at age 35 and then repeated every 3 years if you have no risk factors for diabetes. Screening may need to start earlier and be repeated more often if you have other risk factors for diabetes, such as: You have a first degree relative with diabetes. You are overweight or have obesity. You have high blood pressure, prediabetes, or a history of heart disease. Screening for diabetes should be done if you are planning to become and you are overweight and have other risk factors such as high blood pressure. DENTAL EXAM Go to the dentist once or twice every year for an exam and cleaning. Your dentist will evaluate if you need more frequent visits. EYE EXAM Have an eye exam every 5 to 10 years before age 40. If you have vision problems, have an eye exam every 2 years or more often if recommended by your provider. You should have an eye exam that includes an examination of your retina (back of your eye) at least every year if you have diabetes. IMMUNIZATIONS Commonly needed vaccines include: Flu shot: get one every year. COVID-19 vaccine: ask your provider what is best for you. Tetanus-diphtheria and acellular pertussis (Tdap) vaccine: have one at or after age 19 as one of your tetanus-diphtheria vaccines if you did not receive it as an adolescent. Tetanus-diphtheria: have a booster (or Tdap) every 10 years. Varicella vaccine: receive 2 doses if you never had chickenpox or the varicella vaccine. Hepatitis B vaccine: receive 2, 3, or 4 doses, depending on your exact circumstances. Measles, mumps, and rubella (MMR) vaccine: receive 1 to 2 doses if you are not already immune to MMR. Your provider can tell you if you are immune. Ask your provider about the human papillomavirus (HPV) vaccine if: You have not received the HPV vaccine in the past You have not completed the full vaccine series (you should catch up on this shot) Ask your provider if you should receive other immunizations if you have certain health problems that increase your risk for some diseases such as pneumonia. INFECTIOUS DISEASE SCREENING Women who are sexually active should be screened for chlamydia and gonorrhea up until age 25. Women 25 years and older should be screened for chlamydia and gonorrhea if at high risk. Screening for hepatitis C: All adults ages 18 to 79 should get a one-time test for hepatitis C. people should be screened at every . Screening for human immunodeficiency virus (HIV): All people ages 15 to 65 should get a one-time test for HIV. Depending on your lifestyle and medical history, you may also need to be screened for infections such as syphilis and HIV, as well as other infections. PHYSICAL EXAM All adults should visit their provider from time to time, even if they are healthy. The purpose of these visits is to: Screen for disease Assess your risk of future medical problems Encourage a healthy lifestyle Update your vaccinations and other preventive care services Maintain a relationship with a provider in case of an illness Your height, weight, and BMI should be checked at every exam. During your exam, your provider may ask you about: Depression and anxiety Diet and exercise Alcohol and tobacco use Safety issues, such as using seat belts, smoke detectors, and intimate partner violence Your medicines and risk for interactions SKIN SELF-EXAM Your provider may check your skin for signs of skin cancer, especially if you're at high risk, such as if you: Have had skin cancer before Have close relatives with skin cancer Have a weakened immune system OTHER SCREENING Talk with your provider about colon cancer screening if you have a strong family history of colon cancer or polyps, or if you have had inflammatory bowel disease or polyps yourself. Routine bone density screening of women under 40 is not recommended.
[2024-08-23 11:04] VITALS: BP 140/80; PULSE 85; RESP 14; O2SAT 97; BMI 52.3
== END 2024-08-23 11:57 | disposition home or self-care (01) ==
PROVIDERS: PCP Nurse Practitioner Family; Visit Provider Nurse Practitioner Family
DX: Z00.00 Encounter for general adult medical examination without abnormal findings (principal); M54.50 Low back pain, unspecified; Z68.43 Body mass index [BMI] 50.0-59.9, adult; E66.01 Morbid (severe) obesity due to excess calories; F33.0 Major depressive disorder, recurrent, mild; G89.29 Other chronic pain; Z98.890 Other specified postprocedural states; E04.1 Nontoxic single thyroid nodule; E78.2 Mixed hyperlipidemia; F41.1 Generalized anxiety disorder; Z28.21 Immunization not carried out because of patient refusal; H35.033 Hypertensive retinopathy, bilateral

== ENCOUNTER → 2024-08-23 10:39 | Outpatient (BNVA) | payer OTHER, SELFPAY | PROVIDERS: PCP Nurse Practitioner Family; Visit Provider Nurse Practitioner Family | DX: Z00.00 Encounter for general adult medical examination without abnormal findings (principal); M54.50 Low back pain, unspecified; G89.29 Other chronic pain; I10 Essential (primary) hypertension; H35.63 Retinal hemorrhage, bilateral; E89.40 Asymptomatic postprocedural ovarian failure; R16.0 Hepatomegaly, not elsewhere classified; E04.1 Nontoxic single thyroid nodule; E78.2 Mixed hyperlipidemia; F33.0 Major depressive disorder, recurrent, mild; F41.1 Generalized anxiety disorder; E66.01 Morbid (severe) obesity due to excess calories; E78.5 Hyperlipidemia, unspecified; H35.033 Hypertensive retinopathy, bilateral; F33.9 Major depressive disorder, recurrent, unspecified; Z68.43 Body mass index [BMI] 50.0-59.9, adult; Z28.21 Immunization not carried out because of patient refusal; Z76.89 Persons encountering health services in other specified circumstances; Z98.890 Other specified postprocedural states | CPT/HCPCS: 83036; 96127; 99202; 99386 ==

== ENCOUNTER 2024-08-23 12:36 | Outpatient (REF) | payer OTHER, SELFPAY ==
[2024-08-23 14:54] LABS: Creatinine Urine 251.65 mg/dL; Microalbum/Creatinine Ratio Ur 10.3 ug/mg cr (<30)
[2024-08-23 15:00] LABS: Alanine Aminotransferase 16 U/L (0-31); Albumin Level 4.2 g/dL (3.5-5.0); Alkaline Phosphatase 69 U/L (39-117); Anion Gap 15 (12-20); Aspartate Amino Transferase 23 U/L (5-31); Bilirubin Total 0.3 mg/dL (0.0-1.0); Blood Urea Nitrogen 15 mg/dL (9-16); Calcium 9.5 mg/dL (8.4-10.2); Carbon Dioxide 26 mmol/L (22-29); Chloride 105 mmol/L (96-108); Cholesterol 270 mg/dL (<200); Estimated Glomerular Filt Rate > 60; Glucose Random 90 mg/dL (60-115); HDL Cholesterol 40 mg/dL (>40); LDL Cholesterol Calculated 176 mg/dL (<100); Potassium 4.4 mmol/L (3.3-5.1); Sodium 142 mmol/L (135-145); Total Protein 8.1 g/dL (6.5-8.0); Triglycerides 274 mg/dL (<150)
[2024-08-23 15:18] LABS: TSH reflex Free T4 1.08 uIU/mL (0.32-4.0); Vitamin D 25-OH Total 43.9 ng/mL (>30)
[2024-08-23 15:24] LABS: Vitamin B12 359 pg/mL (200-900)
== END 2024-08-23 12:37 | disposition home or self-care (01) ==
LOC: HO.WFDLDS 12:36
PROVIDERS: Visit Provider Nurse Practitioner Family
DX: E78.5 Hyperlipidemia, unspecified (principal); E04.1 Nontoxic single thyroid nodule
CPT/HCPCS: 36415; 80053; 80061; 82043; 82306; 82570; 82607; 82746; 84443

== ENCOUNTER 2025-04-27 09:52 | Outpatient (AMB) | payer OTHER, SELFPAY ==
--- NOTE | 2025-04-27 10:00 | A.OFFVIS_ITS ---
Vital Signs 04/27/25 10:03 Height 5 ft 2 in Weight 292 lb BMI 53.4 BP 163/71 H Blood Pressure Location Lt radial Position Sitting Respiration 16 Pulse 78 Pulse Source Pulse Oximeter Pulse Oximetry (%) 93 Oxygen Delivery Method Room Air Intake Visit Reasons: Dorsalgia Unspecified [employer] Supervisor Required: No Allergies lisinopril Allergy (Mild, Verified 04/27/25 10:07) gi upset' HPI Comments Details: The patient is a 50-year-old female presenting with chronic back pain. She has had this pain for several years and underwent surgery in [place], which did not alleviate her symptoms. Additionally, she has chronic neck pain, also treated surgically without significant relief. She moved to [place] about a year ago and is continuing her pain management here. Her previous treatments included medications and physical therapy, but she found therapy to be ineffective and is hesitant about further surgeries or injections. Currently, she uses Tylenol, Motrin 800, and occasionally Flexeril, which causes drowsiness. She also manages hypertension and gastroesophageal reflux disease with medication, being cautious with anti-inflammatories due to gastrointestinal concerns. - Onset: Chronic back pain for several years - Quality: Persistent pain - Location: Lower back and neck - Radiation: Pain radiates to legs with swelling - Exacerbating factors: Physical activity - Relieving factors: Tylenol, Motrin 800, and occasionally Flexeril - Interference: Affects daily activities and mobility - Affect: Pain impacts daily activities and mobility - Analgesia: Uses Tylenol, Motrin 800, and Flexeril occasionally - Adverse Effects: Flexeril causes significant drowsiness - Activities of Daily Living: Pain limits physical activity and mobility - Aberrant Drug Related Behaviors: No aberrant behaviors reported [facility] Medical History (Updated 04/27/25 @ 10:41 by Thalia Tomlinson APRN, SHOE WORKER) High cholesterol Hypertension Surgical History H/O: hysterectomy H/O hand surgery H/O neck surgery Previous back surgery Family History (Updated 08/23/24 @ 11:02 by Sameer Lancaster MA) Mother Hypertension Diabetes High cholesterol Social History (Updated 08/23/24 @ 11:01 by Sameer Lnacaster MA) Household Members: Family Both parents involved: No Caregiver staying overnight: No Housing: Apartment Are you a primary director of home care hospice to a significant other at home: No Do you presently have visiting nurse or other home services: No 75 years or older and lives alone: No Alcohol intake: never Patient Tobacco Use Status: Never used Tobacco e-Cigarette/Vaping Use: Never Used Second Hand Smoke Exposure: No Current occupational status: disabled Cognitive needs: No Hearing needs: No Vision needs: Yes (wear glasses) Review of Systems Const Details: - Musculoskeletal: Reports chronic back and neck pain - Neurological: Denies new injuries or falls - Gastrointestinal: Reports gastroesophageal reflux disease Physical Exam Exam Exam: General: awake, alert, oriented. Answers questions appropriately. Fully engaged in examination. Skin: warm, dry, intact HEENT: Normocephalic. Hearing intact. Cardiac: External chest normal in appearance. Respiratory: No cough, audible wheezing or stridor. Abdomen: without gross distension. MS: No obvious swelling or deformities. Able to transition from sit to stand unassisted. Ambulates with bilaterally normal heel strike and toe off decreased cervical range of motion Tenderness across middle and lower trapezius bilaterally Tenderness over lumbar musculature Decreased lumbar ROM SLR negative bilaterally nontender over bilateral PSIS Neurological: Oriented to person, place, time and situation. Thought process intact. No gait abnormalities appreciated. Psychiatric: Appropriate mood and affect. Good judgment and insight. Vital Signs: Last Vital Signs Pulse 78 04/27/25 10:03 Resp 16 04/27/25 10:03 BP 163/71 H 04/27/25 10:03 Pulse Ox 93 04/27/25 10:03 Oxygen Delivery Method Room Air 04/27/25 10:03 BMI result Body Mass Index 53.4 Assessment & Plan Assessment & Plan (1) Cervicalgia: Code(s): M54.2 - Cervicalgia Category: Medical (2) Dorsalgia: Code(s): M54.9 - Dorsalgia, unspecified Category: Medical (3) Myofascial neck pain: Code(s): M54.2 - Cervicalgia Category: Medical Plan The treatment plan involves initiating physical therapy for the patient's upper and lower back to alleviate muscular tightness and enhance strength. Baseline x- rays will be obtained, and the patient is encouraged to provide previous medical records for comprehensive evaluation. A muscle relaxer prescription will be provided for use during severe pain episodes, with precautions regarding alcohol and driving. Additionally, an anti-inflammatory cream will be prescribed to reduce systemic side effects and offer targeted relief. The patient is advised to minimize oral anti-inflammatory use due to potential renal and hepatic side effects. Consideration for future injections will be made if current treatments do not adequately manage the lower back pain. Patient was informed and verbally consented to the use of an ambient scribe for clinic note documentation during this visit. Orders: Orders XR cervical spine w flex/ext 04/27/25 M54.2 - Cervicalgia XR lumbar spine 6V w bending 04/27/25 M54.9 - Dorsalgia, unspecified PT Evaluation and Treatment 04/27/25 M54.2 - Cervicalgia, M54.9 - Dorsalgia, unspecified Medications: New baclofen 5 mg PO TID PRN 60 tabs 1RF muscle spasm diclofenac sodium 3% apply to most painful area twice daily as needed for pain 1 appl topical BID 100 grams 0RF Patient Instructions: - Attend physical therapy sessions as scheduled to improve back strength and flexibility. - Complete x-rays as ordered to establish a baseline for future evaluations. - Use the prescribed muscle relaxer as needed for severe pain, avoiding alcohol and driving. - Apply the anti-inflammatory cream to painful areas to reduce systemic side effects. - Limit the use of oral anti-inflammatories to prevent kidney and liver issues. - Follow up after physical therapy to assess progress and discuss further treatment options. Coding Level of Care Code New Pt Level 4 (03829) Diagnoses Cervicalgia M54.2 Dorsalgia M54.9 Myofascial neck pain M54.2
[2025-04-27 10:03] VITALS: BP 163/71; PULSE 78; RESP 16; O2SAT 93; BMI 53.4
== END 2025-04-27 10:40 | disposition home or self-care (01) ==
PROVIDERS: PCP Nurse Practitioner Family; Visit Provider Registered Nurse Emergency
DX: M54.2 Cervicalgia (principal); M54.9 Dorsalgia, unspecified
CPT/HCPCS: 99204

== ENCOUNTER → 2025-04-27 09:52 | Outpatient (BNVA) | payer OTHER, SELFPAY | PROVIDERS: PCP Nurse Practitioner Family; Visit Provider Registered Nurse Emergency | DX: M54.2 Cervicalgia (principal); M54.50 Low back pain, unspecified; G89.29 Other chronic pain | CPT/HCPCS: 99202 ==